=== PATIENT | female | born 1975 | race Caucasian/White ===

== ENCOUNTER 2018-08-05 03:57 | Inpatient (IN) ==
--- NOTE | 2018-08-05 04:07 | Emergency Department Note ---
ED Disposition Clinical Impression: Tachycardia Hypotension Qualifiers: Hypotension type: unspecified hypotension type Qualified Code(s): I95.9 - Hypotension, unspecified Disposition: Admitted as Observation Condition on Discharge: Fair - Critical Care Critical Care Time: Yes Attestation: On 08/05/18, the high probability of a clinically significant, sudden or life threatening deterioration of the following system(s) required my full and direct attention, intervention and personal management. The time I documented below is in addition to time spent performing reported procedures but includes the following listed in this critical care notation. Total Critical Care Time: 30 Vital system(s) involved:: Circulatory Failure My critical care processes included: Assessment & monitoring of V/S, Initial and Re-exams, Data Review/Interpretation, Coordinating Care, Medication Orders and management, Documentation Medical Decision Making - Billy Inquiry Pt receiving controlled substance: No Vital Signs: 08/05/18 03:59 08/05/18 05:00 08/05/18 05:24 Temperature 98.5 F Temperature Source Oral Pulse Rate [Right Radial] 122 H 124 H 118 H Respiratory Rate 24 16 16 Blood Pressure [Left Arm] 89/55 L 90/48 L 105/60 L Blood Pressure Mean [Left Arm] 66 62 75 Blood Pressure Source [Left Arm] Automatic Cuff Manual Cuff/ Auscultation Automatic Cuff Blood Pressure Position [Left Arm] Supine Supine Sitting 02 Sat by Pulse Oximetry 96 88 L 92 L Oxygen Delivery Method Aerosol Mask Nasal Cannula Nasal Cannula Oxygen Flow Rate (LPM) 3 2 2 08/05/18 05:36 Temperature Temperature Source Pulse Rate [Right Radial] 126 H Respiratory Rate 14 Blood Pressure [Left Arm] 102/62 L Blood Pressure Mean [Left Arm] 75 Blood Pressure Source [Left Arm] Automatic Cuff Blood Pressure Position [Left Arm] Supine 02 Sat by Pulse Oximetry 93 L Oxygen Delivery Method Nasal Cannula Oxygen Flow Rate (LPM) 2 - Lab Data Lab Results 08/05/18 04:10: WBC 13.8 H, RBC 4.81, Hgb 11.4 L, Hct 40.1, MCV 83.4, MCH 23.6 L , MCHC 28.3 L, RDW 19.0 H, Plt Count 225, MPV 7.4, Neut % (Auto) 69.4, Lymph % (Auto) 22.9, [place] % (Auto) 5.2, Eos % (Auto) 1.9, Baso % (Auto) 0.6, Neut # (Auto) 9.6 H, Lymph # (Auto) 3.2, [place] # (Auto) 0.7, Eos # (Auto) 0.3, Baso # (Auto) 0.1 08/05/18 04:10: D-Dimer 191 08/05/18 04:10: Sodium 132 L, Potassium 3.8, Chloride 92 L, Carbon Dioxide 30, Anion Gap 13.8, BUN 12, Creatinine 1.20 H, Estimated Creat Clear 56, Estimated GFR 50 L, Est GFR ( Amer) 60, Glucose 147 H, Calcium 8.7, Total Bilirubin 0.3, AST 4 L, ALT 12, Alkaline Phosphatase 81, Troponin I < 0.02, Total Protein 6.3 L, Albumin 3.0 L, Globulin 3.3 H, Albumin/Globulin Ratio 0.9 L 08/05/18 04:10: Lactate 2.2 H 08/05/18 04:10: B-Natriuretic Peptide 152 H Result diagrams: 08/05/18 04:10 08/05/18 04:10 Orders (Tests/Meds): ED MEDICATIONS Generic Name Dose Route Start Last Admin Trade Name Freq PRN Reason Stop Dose Admin Sodium Chloride 10 ml 08/05/18 04:11 Saline Flush 10ml Syringe IV 09/04/18 04:10 NEEDED PRN Maintain IV Site Discontinued Medications Generic Name Dose Route Start Last Admin Trade Name Freq PRN Reason Stop Dose Admin Methylprednisolone Sodium Succinate 125 mg 08/05/18 04:53 08/05/18 05:06 Solu-Medrol 125mg/2ml Vial IV 08/05/18 04:54 125 mg ONCE ONE Administration Sodium Chloride 1,000 ml 08/05/18 04:14 08/05/18 05:06 Sod Chlor 0.9% 1000ml Bag IV 08/05/18 04:15 1,000 ml BOLUS ONE Administration ORDERS Category Date Time Status XR chest portable Stat Exams 08/05/18 04:11 Taken Thyroid Panel Stat Lab 08/05/18 05:51 Ordered Urinalysis and Microscopic Stat Lab 08/05/18 05:24 Ordered Blood Culture Stat Micro 08/05/18 04:10 Received - Radiology Data #1 Image(s): Chest Image Reviewed: Yes I reviewed the patient's radiology image cardiomegaly - ECG Data Tracing #1 EKG interpreted by Humphrey Pulido MD: Rhythm: sinus tachycardia Rate: 123 [place]: normal Ectopy: none Conduction: Left posterior fascicular block ST Segment Changes: none T Wave Changes: none Q Waves: none Poor R wave progression Baseline artifact and wander present, but I consider the EKG adequate for accurate interpretation. No prior EKGs available for comparison - Physician Consults Physician Consulted: Bartolo Vance Time: 05:50 Reason -: Admission Comment/Response: Agrees to admit the patient to the hospital. We discussed the patient's clinical information, including history, exam, laboratory and radiology results and ED course. Per hospital procedure, I will write temporary bridge inpatient orders on the patient. Specific orders requested by the admitting physician: Continue IV fluids. Hold Lasix and lisinopril. Continue other medications. No antibiotics unless urine shows infection. Urine analysis pending at this time. Continue nebulizers and steroids. Medical Decision Narrative: Reviewed most recent visit to this emergency room. At that time had a white blood cell count of 13.7. Was also tachycardic with a heart rate of 115. Systolic blood pressure was 105. General Adult HPI - General Stated complaint: SOA Time Seen by Provider: 08/05/18 04:00 - History of Present Illness HPI narrative: Brought in by ambulance from [facility]. States that she went out to get a smoke tonight and suddenly began feeling short of breath, heart felt like it was beating out of her throat, lightheaded. Recent shortness of breath for several weeks, has turned her oxygen up from 2 L to 3 L. Pain in "my lungs in the back" for couple of weeks. Mild cough with white sputum. Denies fever. Low blood pressure and low oxygen saturation of 75% reported by personnel at [facility]. Duoneb given during transport. Seen in this emergency room on 07/14/18 for shortness of air, diagnosed with COPD exacerbation. Treated with Zithromax and prednisone. Patient is from [facility], has been here for about 3 months at [facility]. - Related Data Home Medications Medication Instructions Recorded Confirmed Acetaminophen [Tylenol 325mg 650 mg PO Q4-6H PRN 08/05/18 08/05/18 Tablet] Albuterol Sulfate [Albuterol 2.5 mg IH DAILY 08/05/18 08/05/18 0.083% 2.5mg/3mL neb] Albuterol Sulfate [Proair 90 mcg IH Q4-6H PRN 08/05/18 08/05/18 Respiclick] Aspirin [Aspir 81] 81 mg PO DAILY 08/05/18 08/05/18 Atorvastatin Calcium [Atorvastatin 10 mg PO HS 08/05/18 08/05/18 10mg Tab] Carvedilol [Carvedilol 3.125mg Tab] 3.125 mg PO BID 08/05/18 08/05/18 Fluticasone/Salmeterol [Advair 1 inhalation IH BID 08/05/18 08/05/18 100/50mcg diskus] Furosemide [Furosemide 40MG tAB] 40 mg PO PM 08/05/18 08/05/18 Furosemide [Furosemide 80mg Tab] 80 mg PO DAILY 08/05/18 08/05/18 Gabapentin [Gabapentin 400mg Cap] 800 mg PO TID 08/05/18 08/05/18 Haloperidol [Haldol 5mg tablet] 5 mg PO BID 08/05/18 08/05/18 Insulin Aspart [Novolog Flexpen] 15 unit SQ TID 08/05/18 08/05/18 Insulin Glargine,Hum.rec.anlog 28 unit SQ HS 08/05/18 08/05/18 [Basaglar Kwikpen U-100] Ipratropium/Albuterol Sulfate 3 ml IH DAILY PRN 08/05/18 08/05/18 [Iprat-Albut 0.5-3(2.5) mg/3 ml] LORazepam [Lorazepam 0.5mg Tablet] 0.5 mg PO TID 08/05/18 08/05/18 Lisinopril [Lisinopril 2.5mg Tab] 2.5 mg PO DAILY 08/05/18 08/05/18 Metformin HCl 1,000 mg PO BID 08/05/18 08/05/18 Topiramate 100 mg PO BID 08/05/18 08/05/18 buPROPion HCl [Bupropion Xl] 150 mg PO DAILY 08/05/18 08/05/18 risperiDONE [Risperidone] 8 mg PO HS 03/10/19 03/10/19 Allergies Allergy/AdvReac Type Severity Reaction Status Date / Time codeine Allergy Verified 08/05/18 04:13 minocycline Allergy Verified 08/05/18 04:13 [facility] History - Hepatitis A Screen Attestation statement:: This patient has been screened for Hepatitis A risk factors. I have reviewed the patient's past medical history: Yes Medical History: Reports:: Diabetes Mellitus Type 2 - Social History Smoking Status: Current every day smoker Tobacco Type: cigarettes # Packs/Day (cigarettes): 1 Alcohol Intake: never Occupational Status: other ROS Obtained: Yes All systems reviewed & no additional complaints - Constitutional Constitutional: Denies fever(s) - Cardiovascular Cardiovascular: Denies chest pain, Reports palpitations, Reports rapid heart rate - Respiratory Respiratory: Yes cough, Yes dyspnea, No excessive phlegm production, No coughing up blood - Gastrointestinal Gastrointestingal: Denies: abdominal pain, diarrhea, nausea, vomiting - Neurologic Neurologic: Denies headache(s) Physical Exam - General General appearance: alert, in no apparent distress - Head Head exam: atraumatic, normocephalic - Eye Eye exam: Present: normal appearance, PERRL, EOMI - ENT ENT exam: Present: mucous membranes moist - Neck Neck exam: Present: normal inspection, full ROM - Chest Chest inspection: Present: normal inspection, symmetric chest wall rise - Respiratory Respiratory exam: Present: normal lung sounds bilaterally. Absent: respiratory distress - Cardiovascular Cardiovascular exam: Present: normal rhythm, tachycardia, normal heart sounds - Abdominal Exam Abdominal exam: Present: soft. Absent: distention, tenderness, guarding - Extremities Exam Extremities exam: Present: full ROM, other (Trace pitting pretibial edema bilaterally) - Neurological Exam Neurological exam: Present: alert, oriented X3 - Psychiatric Psychiatric exam: Present: normal affect, normal mood - Skin Skin exam: Present: warm, dry
[2018-08-05 04:30] LABS: Basophils # 0.1 K/mm3 (0-0.2); Basophils % 0.6 % (0.1-2.0); Eosinophils # 0.3 K/mm3 (0.0-0.4); Eosinophils % 1.9 % (0.1-12.0); Hematocrit 40.1 % (37.0-47.0); Hemoglobin 11.4 g/dL (12.2-16.2); Lymphocytes # 3.2 K/mm3 (0.7-4.5); Lymphocytes % 22.9 % (10-50); Mean Corpuscular HGB Conc 28.3 g/dL (31.8-35.4); Mean Corpuscular Hemoglobin 23.6 pg (27.0-31.2); Mean Corpuscular Volume 83.4 fl (81-99); Mean Platelet Volume 7.4 fl (7.4-10.4); Monocytes # 0.7 K/mm3 (0.1-1.0); Monocytes % 5.2 % (1.7-9.3); Neutrophils # 9.6 K/mm3 (1.8-7.8); Neutrophils % 69.4 % (37.0-80.0); Platelet Count 225 K/mm3 (142-424); Red Blood Count 4.81 M/mm3 (4.20-5.40); White Blood Count 13.8 K/mm3 (4.8-10.8)
[2018-08-05 04:44] LABS: Alanine Aminotransferase 12 U/L (12-78); Albumin/Globulin Ratio 0.9 (1.1-1.8); Alkaline Phosphatase 81 U/L (46-116); Anion Gap 13.8 mEq/L (5-15); Aspartate Amino Transferase 4 U/L (15-37); Bilirubin,Total 0.3 mg/dL (0.2-1.0); Blood Urea Nitrogen 12 mg/dL (7-18); Calcium 8.7 mg/dL (8.5-10.1); Carbon Dioxide 30 mmol/L (21.0-32.0); Chloride 92 mmol/L (98-107); Globulin 3.3 gm/dl (1.3-3.2); Glucose 147 mg/dL (74-106); Potassium 3.8 mmoL/L (3.5-5.1); Sodium 132 mmol/L (136-145); Total Protein,Serum 6.3 gm/dL (6.4-8.2)
[2018-08-05 06:01] LABS: Appearance,Urine SL CLOUDY (Clear); Blood, Urine Negative (Negative); Color,Urine YELLOW (Yellow); Glucose,Urine (UA) Negative (Negative); Ketones,Urine TRACE (Negative); Leukocyte Esterase,Urine Negative (Negative); Microscopic, Urine URINE MICROSCOPIC (MICROSCOPIC); Protein,Urine Negative (Negative); Urobilinogen,Urine 0.2 EU/dl (0.2)
[2018-08-05 06:03] LABS: Bacteria,Urine 2+ /lpf; Bilirubin,Urine Negative (Negative)
[2018-08-05 06:04] LABS: WBC,Urine Occasional #/hpf (0-3)
[2018-08-05 06:37] LABS: Free Thyroxine Index 2.4 ug/dL (5.93-13.13); Thyroid Stimulating Hormone 1.62 uIU/ml (0.358-3.740)
--- NOTE | 2018-08-05 14:34 | Pharmacy Consult Notes ---
[facility] Pharmacy VTE Monitoring - Patient Demographics Admission date: 08/05/18 Report Date: 08/05/18 Time: 14:34 Allergies/Adverse Reactions: Patient Allergies codeine Allergy (Verified 08/05/18 04:13) minocycline Allergy (Verified 08/05/18 04:13) Height: 1.65 m Weight: 124.738 kg Patient Problems: Current Active Problems Hypotension (Acute) Tachycardia (Acute) - VTE Risk Labs: VTE Related Lab Results Hgb 11.4 g/dL (12.2-16.2) L 08/05/18 04:10 Hct 40.1 % (37.0-47.0) 08/05/18 04:10 Plt Count 225 K/mm3 (142-424) 08/05/18 04:10 BUN 12 mg/dL (7-18) 08/05/18 04:10 Creatinine 1.20 mg/dL (0.55-1.02) H 08/05/18 04:10 Estimated Creat Clear 56 mL/min (50-200) 08/05/18 04:10 Was VTE Risk Assessment Performed: Yes VTE Score: 5 VTE Risk Level: Low Risk - Prophylaxis Types of VTE Prophylaxis: TEDS Knee High (DASHA HOSE ORDER PLACED.)
--- NOTE | 2018-08-05 14:43 | History & Physical Report ---
*Admission Date: 08/05/18 *Chief complaint: sob *History of present illness: this wf from [facility] with feeling dizzy and sob and felt like she may pass out -she reports havint copd and uses o2 at times - pt with no chest pain or syncope -ought in by ambulance from [facility]. States that she went out to get a smoke tonight and suddenly began feeling short of breath, heart felt like it was beating out of her throat, lightheaded. Recent shortness of breath for several weeks, has turned her oxygen up from 2 L to 3 L. Pain in "my lungs in the back" for couple of weeks. Mild cough with white sputum. Denies fever. Low blood pressure and low oxygen saturation of 75% reported by personnel at [facility]. Duoneb given during transport. Seen in this emergency room on 07/14/18 for shortness of air, diagnosed with COPD exacerbation. Treated with Zithromax and prednisone. [facility] History I have reviewed the patient's past medical history: Yes Medical History: Reports:: Arrhythmia, Congestive Heart Failure, Diabetes Mellitus Type 2, Home Oxygen Denies:: Cancer, Diabetes Mellitus Type 1, MRSA *Have you ever received a pneumonia vaccine?: Yes *Have you received a flu vaccine this season?: No Other Surgeries: Yes: Appendectomy, Cholecystectomy, Amputation: No Fractures: No - *Social History Educational Level: Attended College Smoking Status: Current every day smoker Tobacco Type: cigarettes, cigars # Packs/Day (cigarettes): 1 Alcohol Intake: former Substance Use Type: marijuana, painkillers *Occupational Status:: disabled Housing: assisted living facility Household Members: other *Travel in the last 8 weeks: None - Psychiatric History Expresses thoughts of harming self/others: None Suicide Plan Description: No Plan Family Hx:: Anemia, Asthma, Coronary Artery Disease, Diabetes, Heart Attack, Hyperlipidemia, Hypertension Review of Systems - Review of Systems Review of systems:: pertinent systems reviewed and negative unless documented below - Constitutional Reports weakness, Denies headache(s) - Eyes Denies change in vision - ENT Denies change in voice - *Cardiovascular Reports shortness of breath, Denies chest pain - *Respiratory Denies cough - *Gastrointestinal Denies abdominal pain - *Genitourinary Denies painful urination - *Musculoskeletal Denies joint pain - Integumentary/Breasts Denies rash - *Neurologic Denies headache(s), Denies seizure-like activity - Psychiatric Denies anxiety Meds Home Medications Medication Instructions Recorded Confirmed Type Acetaminophen [Tylenol 325mg 650 mg PO Q4-6H PRN 08/05/18 08/05/18 History Tablet] Albuterol Sulfate [Albuterol 2.5 mg IH DAILY 08/05/18 08/05/18 History 0.083% 2.5mg/3mL neb] Albuterol Sulfate [Proair 90 mcg IH Q4-6H PRN 08/05/18 08/05/18 History Respiclick] Aspirin [Aspir 81] 81 mg PO DAILY 08/05/18 08/05/18 History Atorvastatin Calcium [Atorvastatin 10 mg PO HS 08/05/18 08/05/18 History 10mg Tab] Carvedilol [Carvedilol 3.125mg Tab] 3.125 mg PO BID 08/05/18 08/05/18 History Fluticasone/Salmeterol [Advair 1 inhalation IH BID 08/05/18 08/05/18 History 100/50mcg diskus] Furosemide [Furosemide 40MG tAB] 40 mg PO PM 08/05/18 08/05/18 History Furosemide [Furosemide 80mg Tab] 80 mg PO DAILY 08/05/18 08/05/18 History Gabapentin [Gabapentin 400mg Cap] 800 mg PO TID 08/05/18 08/05/18 History Haloperidol [Haldol 5mg tablet] 5 mg PO BID 08/05/18 08/05/18 History Insulin Aspart [Novolog Flexpen] 15 unit SQ TID 08/05/18 08/05/18 History Insulin Glargine,Hum.rec.anlog 28 unit SQ HS 08/05/18 08/05/18 History [Basaglar Kwikpen U-100] Ipratropium/Albuterol Sulfate 3 ml IH DAILY PRN 08/05/18 08/05/18 History [Iprat-Albut 0.5-3(2.5) mg/3 ml] LORazepam [Lorazepam 0.5mg Tablet] 0.5 mg PO TID 08/05/18 08/05/18 History Lisinopril [Lisinopril 2.5mg Tab] 2.5 mg PO DAILY 08/05/18 08/05/18 History Metformin HCl 1,000 mg PO BID 08/05/18 08/05/18 History Sitagliptin Phosphate [Januvia 100 mg PO DAILY 08/05/18 08/05/18 History 100mg tablet] Topiramate 100 mg PO BID 08/05/18 08/05/18 History buPROPion HCl [Bupropion Xl] 150 mg PO DAILY 08/05/18 08/05/18 History risperiDONE [Risperidone] 8 mg PO HS 08/05/18 08/05/18 History Allergies Allergy/AdvReac Type Severity Reaction Status Date / Time codeine Allergy Verified 08/05/18 04:13 minocycline Allergy Verified 08/05/18 04:13 Exam Vital signs and Labs for Last 24 Hours: Temp Pulse Resp BP Pulse Ox 98.5 F 124 H 20 114/60 94 L 08/05/18 11:37 08/05/18 14:40 08/05/18 11:37 08/05/18 11:37 08/05/18 11:37 Laboratory Results - last 24 hr 08/05/18 04:10: WBC 13.8 H, RBC 4.81, Hgb 11.4 L, Hct 40.1, MCV 83.4, MCH 23.6 L , MCHC 28.3 L, RDW 19.0 H, Plt Count 225, MPV 7.4, Neut % (Auto) 69.4, Lymph % (Auto) 22.9, [place] % (Auto) 5.2, Eos % (Auto) 1.9, Baso % (Auto) 0.6, Neut # (Auto) 9.6 H, Lymph # (Auto) 3.2, [place] # (Auto) 0.7, Eos # (Auto) 0.3, Baso # (Auto) 0.1 08/05/18 04:10: D-Dimer 191 08/05/18 04:10: Sodium 132 L, Potassium 3.8, Chloride 92 L, Carbon Dioxide 30, Anion Gap 13.8, BUN 12, Creatinine 1.20 H, Estimated Creat Clear 56, Estimated GFR 50 L, Est GFR ( Amer) 60, Glucose 147 H, Calcium 8.7, Total Bilirubin 0.3, AST 4 L, ALT 12, Alkaline Phosphatase 81, Troponin I < 0.02, Total Protein 6.3 L, Albumin 3.0 L, Globulin 3.3 H, Albumin/Globulin Ratio 0.9 L 08/05/18 04:10: Lactate 2.2 H 08/05/18 04:10: B-Natriuretic Peptide 152 H 08/05/18 04:10: TSH 1.62, Free T4 Index 2.4 L, Thyroxine (T4) 6.4, T3 Uptake 37 08/05/18 05:24: Urine Color Yellow, Urine Appearance Sl cloudy, Urine pH 6.0, Ur Specific [place] 1.020, Urine Protein Negative, Urine Glucose (UA) Negative, Urine Ketones Trace, Urine Blood Negative, Urine Nitrate Negative, Urine Bilirubin Negative, Urine Urobilinogen 0.2, Ur Leukocyte Esterase Negative, Urine WBC Occasional, Ur Squamous Epith Cells 3-5, Urine Bacteria 2+ 08/05/18 06:50: POC Glucose 145 H 08/05/18 08:45: Troponin I < 0.02 08/05/18 08:45: Lactate 1.7 08/05/18 10:52: POC Glucose 259 H 08/05/18 12:23: Troponin I < 0.02 I & O for Last 24 hours: Intake & Output 08/03/18 08/04/18 08/05/18 08/06/18 10:59 10:59 11:59 11:59 Intake Total 240 / 240 Output Total 350 / 350 Balance -110 / -110 Weight 275 lb - Constitutional no acute distress, obese - *Routine HEENT Exam Head: Present: normocephalic Eye: Present: EOMI, PERRL ENT: Present: mucous membranes dry - *Routine Neck Exam Absent: JVD - *Routine Respiratory Exam Present: prolonged expiratory phase, wheezes. Absent: respiratory distress - *Routine Cardiovascular Exam Present: RRR, murmur, S4 - *Routine Abdominal Exam Present: soft - *Routine Extremities Exam Absent: calf tenderness - *Routine Skin Exam Present: intact - *Routine Neurological Exam Present: alert, oriented X3, CN II-XII intact - Routine Psychiatric Exam Present: normal affect Assessment and Plan (1) COPD (chronic obstructive pulmonary disease) Current visit: No Status: Acute Qualifiers: COPD type: COPD with acute exacerbation Qualified Code(s): J44.1 - Chronic obstructive pulmonary disease with (acute) exacerbation Category: Medical Code(s): J44.9 - Chronic obstructive pulmonary disease, unspecified (2) Dizziness Current visit: Yes Status: Acute Category: Medical Code(s): R42 - Dizziness and giddiness (3) Obesity Current visit: Yes Status: Acute Qualifiers: Obesity type: due to excess calories Obesity classification: adult class 3 (BMI >= 40) Serious obesity comorbidity presence: with serious comorbidity Body mass index: BMI 45.0-49.9 Qualified Code(s): E66.01 - Morbid (severe) obesity due to excess calories; Z68.42 - Body mass index (BMI) 45.0-49.9, adult Category: Medical Code(s): E66.9 - Obesity, unspecified (4) Diabetes Current visit: Yes Status: Acute Qualifiers: Diabetes mellitus type: type 1 Diabetes mellitus complication status: with unspecified complications Qualified Code(s): E10.8 - Type 1 diabetes mellitus with unspecified complications Category: Medical Code(s): E11.9 - Type 2 diabetes mellitus without complications (5) Schizophrenia Current visit: Yes Status: Acute Qualifiers: Schizophrenia type: undifferentiated schizophrenia Qualified Code(s): F20.3 - Undifferentiated schizophrenia Category: Medical Code(s): F20.9 - Schizophrenia, unspecified
[2018-08-06 05:52] LABS: ABG Base Excess 7.4 mmol/L (-2.4-2.3); ABG HCO3 33.1 mmhg (22.0-26.0); ABG Oxygen Saturation 90 % (90-100); ABG PH 7.34 mmol/L (7.35-7.45)
[2018-08-06 05:56] LABS: ABG PCO2 62.3 mmhg (35.0-45.0); Allen's Test Acceptable; Oxygen 2 %
[2018-08-06 06:46] LABS: Basophils % 0.1 % (0.1-2.0); Eosinophils % 0.2 % (0.1-12.0); Hematocrit 42.1 % (37.0-47.0); Hemoglobin 11.9 g/dL (12.2-16.2); Lymphocytes # 1.3 K/mm3 (0.7-4.5); Lymphocytes % 9.5 % (10-50); Mean Corpuscular HGB Conc 28.3 g/dL (31.8-35.4); Mean Corpuscular Hemoglobin 23.7 pg (27.0-31.2); Mean Corpuscular Volume 83.7 fl (81-99); Mean Platelet Volume 8.3 fl (7.4-10.4); Monocytes # 0.7 K/mm3 (0.1-1.0); Monocytes % 4.9 % (1.7-9.3); Neutrophils # 11.6 K/mm3 (1.8-7.8); Neutrophils % 85.3 % (37.0-80.0); Platelet Count 233 K/mm3 (142-424); Red Blood Count 5.02 M/mm3 (4.20-5.40); Red Cell Distribution Width 18.6 % (11.5-17.5); White Blood Count 13.5 K/mm3 (4.8-10.8)
[2018-08-06 06:49] LABS: Anion Gap 9.8 mEq/L (5-15); Potassium 4.8 mmoL/L (3.5-5.1)
[2018-08-06 07:04] LABS: Calcium 9.6 mg/dL (8.5-10.1)
[2018-08-06 07:50] LABS: Lymphocytes % 10 % (10-50); Monocytes % 3 % (2-9); Neutrophils % 87 % (42-76); Total Cells Counted 100
[2018-08-06 07:51] LABS: Hypochromasia 2+
--- NOTE | 2018-08-06 08:53 | Progress Note ---
Internal Medicine - PN: Subj *Date: 08/06/18 *Time: 08:30 Interval history: somulent but no c/o Exam Vital signs and Labs for Last 24 Hours: Temp Pulse Resp BP Pulse Ox 97.9 F 120 H 20 110/62 91 L 08/06/18 08:00 08/06/18 08:00 08/06/18 08:00 08/06/18 08:00 08/06/18 08:00 Laboratory Results - last 24 hr 08/05/18 08:45: Troponin I < 0.02 08/05/18 08:45: Lactate 1.7 08/05/18 10:52: POC Glucose 259 H 08/05/18 12:23: Troponin I < 0.02 08/05/18 16:33: POC Glucose 249 H 08/05/18 21:25: POC Glucose 211 H 08/06/18 06:00: Specimen Source Left radial, O2 % 2, ABG pH 7.34 L, ABG pCO2 62.3 H, ABG pO2 59.0 L, ABG HCO3 33.1 H, ABG Total CO2 35.0 H, ABG O2 Saturation 90, ABG Base Excess 7.4 H, Yan Test Acceptable 08/06/18 06:03: POC Glucose 194 H 08/06/18 06:08: WBC 13.5 H, RBC 5.02, Hgb 11.9 L, Hct 42.1, MCV 83.7, MCH 23.7 L , MCHC 28.3 L, RDW 18.6 H, Plt Count 233, MPV 8.3, Neut % (Auto) 85.3 H, Lymph % (Auto) 9.5 L, [place] % (Auto) 4.9, Eos % (Auto) 0.2, Baso % (Auto) 0.1, Neut # (Auto) 11.6 H, Lymph # (Auto) 1.3, [place] # (Auto) 0.7, Eos # (Auto) 0.0, Baso # (Auto) 0.0, Total Counted 100, Neutrophils % (Manual) 87 H, Lymphocytes % (Manual) 10, Monocytes % (Manual) 3, Platelet Estimate Normal, Hypochromasia 2+ 08/06/18 06:08: Sodium 136, Potassium 4.8 D, Chloride 99, Carbon Dioxide 32, Anion Gap 9.8, BUN 15, Creatinine 0.75 D, Estimated Creat Clear 90, Estimated GFR 86, Est GFR ( Amer) 104 D, Glucose 196 H, Calcium 9.6 D I & O for Last 24 hours: Intake & Output 08/03/18 08/04/18 08/05/18 08/06/18 10:59 10:59 11:59 11:59 Intake Total 1727 / 1727 Output Total 650 / 650 Balance 1077 / 1077 Weight 275 lb 0.003 oz Microbiology Reports for the Last 24 Hours: Microbiology 08/05/18 05:24 Urine,Clean Catch Urine Culture - Final Multiple organisms, suggests contamination. - Constitutional no acute distress, obese, somnolent - *Routine HEENT Exam Head: Present: normocephalic Eye: Present: EOMI, PERRL ENT: Present: mucous membranes dry - *Routine Neck Exam Present: supple - *Routine Respiratory Exam Present: decreased breath sounds - *Routine Cardiovascular Exam Present: tachycardia - *Routine Abdominal Exam Present: soft - *Routine Extremities Exam Absent: calf tenderness - *Routine Skin Exam Present: intact - *Routine Neurological Exam Present: alert, oriented X3, CN II-XII intact - Routine Psychiatric Exam Present: unable to assess Assessment and Plan (1) COPD (chronic obstructive pulmonary disease) Current visit: No Status: Acute Qualifiers: COPD type: COPD with acute exacerbation Qualified Code(s): J44.1 - Chronic obstructive pulmonary disease with (acute) exacerbation Category: Medical Code(s): J44.9 - Chronic obstructive pulmonary disease, unspecified (2) Dizziness Current visit: Yes Status: Acute Category: Medical Code(s): R42 - Dizziness and giddiness (3) Obesity Current visit: Yes Status: Acute Qualifiers: Obesity type: due to excess calories Obesity classification: adult class 3 (BMI >= 40) Serious obesity comorbidity presence: with serious comorbidity Body mass index: BMI 45.0-49.9 Qualified Code(s): E66.01 - Morbid (severe) obesity due to excess calories; Z68.42 - Body mass index (BMI) 45.0-49.9, adult Category: Medical Code(s): E66.9 - Obesity, unspecified (4) Diabetes Current visit: Yes Status: Acute Qualifiers: Diabetes mellitus type: type 1 Diabetes mellitus complication status: with unspecified complications Qualified Code(s): E10.8 - Type 1 diabetes mellitus with unspecified complications Category: Medical Code(s): E11.9 - Type 2 diabetes mellitus without complications (5) Schizophrenia Current visit: Yes Status: Acute Qualifiers: Schizophrenia type: undifferentiated schizophrenia Qualified Code(s): F20.3 - Undifferentiated schizophrenia Category: Medical Code(s): F20.9 - Schizophrenia, unspecified (6) Tobacco use Current visit: Yes Status: Acute Category: Medical Code(s): Z72.0 - Tobacco use
--- NOTE | 2018-08-06 09:02 | Consult Report ---
History of Present Illness Consult date: 08/06/18 Requesting physician: Torrse Vance Consult reason: hypotension Chief complaint: SOA Additional Medical History:: 1. History of diabetes 2. Tobacco use 3. Obesity 4. Schizophrenia 5. Hypoventilation disorder secondary to obesity (Pickwickian Syndrome) A. COPD with PRN oxygen use History of present illness: this wf from [place] with feeling dizzy and sob and felt like she may pass out -she reports having copd and uses o2 at times - pt with no chest pain or syncope -brought in by ambulance from [facility]. States that she went out to get a smoke tonight and suddenly began feeling short of breath, heart felt like it was beating out of her throat, lightheaded. Recent shortness of breath for several weeks, has turned her oxygen up from 2 L to 3 L. Pain in "my lungs in the back" for couple of weeks. Mild cough with white sputum. Denies fever. Low blood pressure and low oxygen saturation of 75% reported by personnel at [facility] Duoneb given during transport. Seen in this emergency room on 07/14/18 for shortness of air, diagnosed with COPD exacerbation. Treated with Zithromax and prednisone. The above per Dr. Vance Difficult historian. Falls asleep easily. ABG on 2 LPM oxygen this AM shows pH of 7.34, pCO2 of 62.3 and pO2 of 59. Attempt of BiPAP is being started. EKG on 08-05-18 shows sinus tach at 123 bpm with LPFB and PRWP across the precordium. [facility] History Medical History: Reports:: Arrhythmia, Congestive Heart Failure, Diabetes Mellitus Type 2, Home Oxygen Denies:: Cancer, Diabetes Mellitus Type 1, MRSA *Have you ever received a pneumonia vaccine?: Yes *Have you received a flu vaccine this season?: No Other Surgeries: Yes: Appendectomy, Cholecystectomy, Amputation: No Fractures: No - *Social History Educational Level: Attended College Smoking Status: Current every day smoker Tobacco Type: cigarettes, cigars # Packs/Day (cigarettes): 1 Alcohol Intake: former Substance Use Type: marijuana, painkillers *Occupational Status:: disabled Housing: assisted living facility Household Members: other *Travel in the last 8 weeks: None - Psychiatric History Expresses thoughts of harming self/others: None Suicide Plan Description: No Plan Family Hx:: Anemia, Asthma, Coronary Artery Disease, Diabetes, Heart Attack, Hyperlipidemia, Hypertension Meds Home Medications Medication Instructions Recorded Confirmed Type Acetaminophen [Tylenol 325mg 650 mg PO Q4-6H PRN 08/05/18 08/05/18 History Tablet] Albuterol Sulfate [Albuterol 2.5 mg IH DAILY 08/05/18 08/05/18 History 0.083% 2.5mg/3mL neb] Albuterol Sulfate [Proair 90 mcg IH Q4-6H PRN 08/05/18 08/05/18 History Respiclick] Aspirin [Aspir 81] 81 mg PO DAILY 08/05/18 08/05/18 History Atorvastatin Calcium [Atorvastatin 10 mg PO HS 08/05/18 08/05/18 History 10mg Tab] Carvedilol [Carvedilol 3.125mg Tab] 3.125 mg PO BID 08/05/18 08/05/18 History Fluticasone/Salmeterol [Advair 1 inhalation IH BID 08/05/18 08/05/18 History 100/50mcg diskus] Furosemide [Furosemide 40MG tAB] 40 mg PO PM 08/05/18 08/05/18 History Furosemide [Furosemide 80mg Tab] 80 mg PO DAILY 08/05/18 08/05/18 History Gabapentin [Gabapentin 400mg Cap] 800 mg PO TID 08/05/18 08/05/18 History Haloperidol [Haldol 5mg tablet] 5 mg PO BID 08/05/18 08/05/18 History Insulin Aspart [Novolog Flexpen] 15 unit SQ TID 08/05/18 08/05/18 History Insulin Glargine,Hum.rec.anlog 28 unit SQ HS 08/05/18 08/05/18 History [Basaglar Kwikpen U-100] Ipratropium/Albuterol Sulfate 3 ml IH DAILY PRN 08/05/18 08/05/18 History [Iprat-Albut 0.5-3(2.5) mg/3 ml] LORazepam [Lorazepam 0.5mg Tablet] 0.5 mg PO TID 08/05/18 08/05/18 History Lisinopril [Lisinopril 2.5mg Tab] 2.5 mg PO DAILY 08/05/18 08/05/18 History Metformin HCl 1,000 mg PO BID 08/05/18 08/05/18 History Sitagliptin Phosphate [Januvia 100 mg PO DAILY 08/05/18 08/05/18 History 100mg tablet] Topiramate 100 mg PO BID 08/05/18 08/05/18 History buPROPion HCl [Bupropion Xl] 150 mg PO DAILY 08/05/18 08/05/18 History risperiDONE [Risperidone] 8 mg PO HS 08/05/18 08/05/18 History Allergies Allergy/AdvReac Type Severity Reaction Status Date / Time codeine Allergy Verified 08/05/18 04:13 minocycline Allergy Verified 08/05/18 04:13 Review of Systems - *Cardiovascular Reports shortness of breath, Reports rapid, pounding, or irregular heartbeat, Denies chest pain - *Respiratory Reports cough, Reports shortness of breath, Reports shortness of breath with activity - *Gastrointestinal Denies abdominal pain, Denies loose stools - *Genitourinary Denies blood in urine - *Musculoskeletal Denies joint pain, Denies back pain - *Neurologic Reports weakness, Denies headache(s), Denies seizure-like activity Exam Vital signs and Labs for Last 24 Hours: Temp Pulse Resp BP Pulse Ox 97.9 F 120 H 20 110/62 91 L 08/06/18 08:00 08/06/18 08:00 08/06/18 08:00 08/06/18 08:00 08/06/18 08:00 Laboratory Results - last 24 hr 08/05/18 08:45: Troponin I < 0.02 08/05/18 08:45: Lactate 1.7 08/05/18 10:52: POC Glucose 259 H 08/05/18 12:23: Troponin I < 0.02 08/05/18 16:33: POC Glucose 249 H 08/05/18 21:25: POC Glucose 211 H 08/06/18 06:00: Specimen Source Left radial, O2 % 2, ABG pH 7.34 L, ABG pCO2 62.3 H, ABG pO2 59.0 L, ABG HCO3 33.1 H, ABG Total CO2 35.0 H, ABG O2 Saturation 90, ABG Base Excess 7.4 H, Yan Test Acceptable 08/06/18 06:03: POC Glucose 194 H 08/06/18 06:08: WBC 13.5 H, RBC 5.02, Hgb 11.9 L, Hct 42.1, MCV 83.7, MCH 23.7 L , MCHC 28.3 L, RDW 18.6 H, Plt Count 233, MPV 8.3, Neut % (Auto) 85.3 H, Lymph % (Auto) 9.5 L, [place] % (Auto) 4.9, Eos % (Auto) 0.2, Baso % (Auto) 0.1, Neut # (Auto) 11.6 H, Lymph # (Auto) 1.3, [place] # (Auto) 0.7, Eos # (Auto) 0.0, Baso # (Auto) 0.0, Total Counted 100, Neutrophils % (Manual) 87 H, Lymphocytes % (Manual) 10, Monocytes % (Manual) 3, Platelet Estimate Normal, Hypochromasia 2+ 08/06/18 06:08: Sodium 136, Potassium 4.8 D, Chloride 99, Carbon Dioxide 32, Anion Gap 9.8, BUN 15, Creatinine 0.75 D, Estimated Creat Clear 90, Estimated GFR 86, Est GFR ( Amer) 104 D, Glucose 196 H, Calcium 9.6 D I & O for Last 24 hours: Intake & Output 08/03/18 08/04/18 08/05/18 08/06/18 10:59 10:59 11:59 11:59 Intake Total 1727 / 1727 Output Total 650 / 650 Balance 1077 / 1077 Weight 275 lb 0.003 oz Microbiology Reports for the Last 24 Hours: Microbiology 08/05/18 05:24 Urine,Clean Catch Urine Culture - Final Multiple organisms, suggests contamination. - *Routine Respiratory Exam Present: decreased breath sounds. Absent: accessory muscle use, rales, rhonchi, wheezes - *Routine Cardiovascular Exam Present: tachycardia. Absent: murmur, gallop, rubs - *Routine Abdominal Exam Present: soft. Absent: tenderness, distended, guarding - *Routine Extremities Exam Absent: edema, calf tenderness - *Routine Neurological Exam Present: moving all extremities Assessment and Plan (1) COPD (chronic obstructive pulmonary disease) Current visit: No Status: Acute Qualifiers: COPD type: COPD with acute exacerbation Qualified Code(s): J44.1 - Chronic obstructive pulmonary disease with (acute) exacerbation Category: Medical Code(s): J44.9 - Chronic obstructive pulmonary disease, unspecified (2) Dizziness Current visit: Yes Status: Acute Category: Medical Code(s): R42 - Dizziness and giddiness (3) Obesity Current visit: Yes Status: Acute Qualifiers: Obesity type: due to excess calories Obesity classification: adult class 3 (BMI >= 40) Serious obesity comorbidity presence: with serious comorbidity Body mass index: BMI 45.0-49.9 Qualified Code(s): E66.01 - Morbid (severe) obesity due to excess calories; Z68.42 - Body mass index (BMI) 45.0-49.9, adult Category: Medical Code(s): E66.9 - Obesity, unspecified (4) Diabetes Current visit: Yes Status: Acute Qualifiers: Diabetes mellitus type: type 1 Diabetes mellitus complication status: with unspecified complications Qualified Code(s): E10.8 - Type 1 diabetes mellitus with unspecified complications Category: Medical Code(s): E11.9 - Type 2 diabetes mellitus without complications (5) Schizophrenia Current visit: Yes Status: Acute Qualifiers: Schizophrenia type: undifferentiated schizophrenia Qualified Code(s): F20.3 - Undifferentiated schizophrenia Category: Medical Code(s): F20.9 - Schizophrenia, unspecified (6) Tobacco use Current visit: Yes Status: Acute Category: Medical Code(s): Z72.0 - Tobacco use - Assessment and plan all Dx Assessment and Plan for all problems:: 1. Tachycardia, secondary to pulmonary issues. Recommend switching coreg to bisoprolol for better heart rate control with less BP effect. 2. Preliminary echo shows normal LVEF without significant valve disease. 3. Once respiratory status has improved, patient should have a cardiac workup due to her diabetes. Doubt patient would be able to exercise due to obesity or tolerate lexiscan due to severe pulmonary issues. Likely will need to have cardiac cath which can wait since no evidence of ACS at this time.
--- NOTE | 2018-08-06 19:47 | Cardiology Report ---
PROCEDURE: 2-D M-mode and color Doppler study INDICATIONS FOR THE TEST: Chest pain COPD+ Heart Murmur Tobacco Smoking+ Palpitations Fatigue Syncope Edema Hypertension Diabetes Mellitus+ Rheumatic Fever SOB+RODRIGUEZ Obesity Hyperlipidemia Family History HD Additional History DIZZINESS, HOME 02, CHF, BIPOLAR, SCHIZO PATIENT INFORMATION HEIGHT: 67 WEIGHT:275 GENDER: Female B/P:114/60 2-D/M-MODE INTERPRETATION: 2-D MEASUREMENTS OBSERVED VALUES IN CMS Right Ventricular Dimension (RVDd) 3.5 Interventricular Septum (Thickness)(IVsd) 1.3 Left Ventricular Internal Dimensions(LVIDd) 3.4 Left Ventricular Posterior Wall (Thickness)(LVPWd) 1.3 Aortic Root 3.2 Aortic Cusp Separation 2.2 Left Atrial Dimensions (LAD) 3.2 2D 1. Left atrium is moderately enlarged, left ventricle is normal size, mild concentric left ventricular hypertrophy, visually estimated ejection fraction 55% with no regional wall motion abnormality. 2. The right atrium and right ventricle are moderately enlarged with normal contractility. 3. The aortic valve is minimally thickened and fibrosed. 4. The mitral and tricuspid valve leaflets are minimally thickened 5. The pulmonic valve is poorly present. 6. No significant pericardial effusion noted. DOPPLER INTERROGATION: Doppler interrogation of the aortic, mitral and tricuspid valvular presence of mild mitral and tricuspid regurgitation, calculated right ventricular systolic pressure is 55 mmHg consistent with moderate pulmonary hypertension, diastolic parameters are inconclusive. CONCLUSION: 1. Moderate biatrial enlargement, normal left ventricular size, mild concentric left ventricular hypertrophy, visually estimated ejection fraction 55% with no regional wall motion abnormality, diastolic parameters are inconclusive. 2. Moderately enlarged right ventricle with normal contractility. 3. Mild mitral and tricuspid regurgitation, calculated right ventricular systolic pressure is 55 mmHg consistent with moderate pulmonary hypertension. 4. No significant pericardial effusion noted.
--- NOTE | 2018-08-07 11:31 | Progress Note ---
Subjective Date: 08/07/18 Time: 11:28 Principal diagnosis: Tachycardia, COPD exacerbation Interval history: 42 yo WF in bed in NAD. More alert today. States she feels better and is breathing better. Telemetry shows NSR without significant arrhythmias. Echo shows LVEF of 55% with RVSP of 55 mm Hg. Discussed smoking cessation Exam Vital signs and Labs for Last 24 Hours: Temp Pulse Resp BP Pulse Ox 98.0 F 88 18 142/87 H 96 08/07/18 08:00 08/07/18 08:00 08/07/18 08:00 08/07/18 08:00 08/07/18 08:00 Laboratory Results - last 24 hr 08/06/18 11:37: POC Glucose 210 H 08/06/18 16:28: POC Glucose 241 H 08/06/18 21:33: POC Glucose 234 H 08/07/18 06:27: POC Glucose 205 H I & O for Last 24 hours: Intake & Output 08/04/18 08/05/18 08/06/18 08/07/18 10:59 11:59 11:59 11:59 Intake Total 1727 / 1727 1856 / 1856 Output Total 650 / 650 1200 / 1200 Balance 1077 / 1077 656 / 656 Weight 275 lb 0.003 oz 275 lb 0.003 oz Microbiology Reports for the Last 24 Hours: Microbiology 08/05/18 04:10 Blood Blood Culture - Preliminary NO GROWTH AFTER 48 HOURS 08/05/18 04:10 Blood Blood Culture - Preliminary NO GROWTH AFTER 48 HOURS - *Routine Respiratory Exam Present: CTA bilaterally. Absent: accessory muscle use, rales, rhonchi, wheezes - *Routine Cardiovascular Exam Present: RRR. Absent: murmur, gallop, rubs - *Routine Extremities Exam Absent: edema, calf tenderness - *Routine Neurological Exam Present: alert, oriented X3, moving all extremities Progress Note: A&P (1) COPD (chronic obstructive pulmonary disease) Status: Acute Current Visit: No (2) Dizziness Status: Acute Current Visit: Yes (3) Obesity Status: Acute Current Visit: Yes (4) Diabetes Status: Acute Current Visit: Yes (5) Schizophrenia Status: Acute Current Visit: Yes (6) Tobacco use Status: Acute Current Visit: Yes (7) Tachycardia Status: Resolved Current Visit: Yes Assessment and Plan for All Diagnoses:: Cardiac status has improved on bisoprolol and improvement of respiratory status (using combo of BiPAP and supplemental oxygen). Encouraged smoking cessation. Continue ASA 81 mg daily lipitor 10 mg daily bisoprolol 5 mg daily Follow up in 2-3 wks OK for discharge from Cardiology standpoint.
--- NOTE | 2018-08-07 12:43 | Discharge Summary ---
General - General Admission date:: 08/05/18 Discharge date: 08/07/18 HPI HPI: this wf from [facility] with feeling dizzy and sob and felt like she may pass out -she reports havint copd and uses o2 at times - pt with no chest pain or syncope -ought in by ambulance from [facility]. States that she went out to get a smoke tonight and suddenly began feeling short of breath, heart felt like it was beating out of her throat, lightheaded. Recent shortness of breath for several weeks, has turned her oxygen up from 2 L to 3 L. Pain in "my lungs in the back" for couple of weeks. Mild cough with white sputum. Denies fever. Low blood pressure and low oxygen saturation of 75% reported by personnel at [facility]. Duoneb given during transport. Seen in this emergency room on 07/14/18 for shortness of air, diagnosed with COPD exacerbation. Treated with Zithromax and prednisone. Hospital Course Hospital Course: pt did well in the hospital with resp treatments and o2 with iv steroids - she was noted to have elevated co2 on abg and bpap was attempted but pt was not cooperative and slowly improved with treatment with stable room air sats- she was heidy by card -History of diabetes 2. Tobacco use 3. Obesity 4. Schizophrenia 5. Hypoventilation disorder secondary to obesity (Pickwickian Syndrome) A. COPD with PRN oxygen use History of present illness: this wf from [facility] with feeling dizzy and sob and felt like she may pass out -she reports having copd and uses o2 at times - pt with no chest pain or syncope -brought in by ambulance from [facility]. States that she went out to get a smoke tonight and suddenly began feeling short of breath, heart felt like it was beating out of her throat, lightheaded. Recent shortness of breath for several weeks, has turned her oxygen up from 2 L to 3 L. Pain in "my lungs in the back" for couple of weeks. Mild cough with white sputum. Denies fever. Low blood pressure and low oxygen saturation of 75% reported by personnel at [facility]. Duoneb given during transport. Seen in this emergency room on 07/14/18 for shortness of air, diagnosed with COPD exacerbation. Treated with Zithromax and prednisone. The above per Dr. Vance Difficult historian. Falls asleep easily. ABG on 2 LPM oxygen this AM shows pH of 7.34, pCO2 of 62.3 and pO2 of 59. Attempt of BiPAP is being started. EKG on 08-05-18 showschycardia, secondary to pulmonary issues. Recommend switching coreg to bisoprolol for better heart rate control with less BP effect. 2. Preliminary echo shows normal LVEF without significant valve disease. 3. Once respiratory status has improved, patient should have a cardiac workup due to her diabetes. Doubt patient would be able to exercise due to obesity or tolerate lexiscan due to severe pulmonary issues. Likely will need to have cardiac cath which can wait since no evidence of ACS at this time. pt had echo sinus tach at 123 bpm with LPFB and PRWP across the precordium. eft atrium is moderately enlarged, left ventricle is normal size, mild concentric left ventricular hypertrophy, visually estimated ejection fraction 55% with no regional wall motion abnormality. 2. The right atrium and right ventricle are moderately enlarged with normal contractility. 3. The aortic valve is minimally thickened and fibrosed. 4. The mitral and tricuspid valve leaflets are minimally thickened 5. The pulmonic valve is poorly present. 6. No significant pericardial effusion noted. DOPPLER INTERROGATION: Doppler interrogation of the aortic, mitral and tricuspid valvular presence of mild mitral and tricuspid regurgitation, calculated right ventricular systolic pressure is 55 mmHg consistent with moderate pulmonary hypertension, diastolic parameters are inconclusive. CONCLUSION: 1. Moderate biatrial enlargement, normal left ventricular size, mild concentric left ventricular hypertrophy, visually estimated ejection fraction 55% with no regional wall motion abnormality, diastolic parameters are inconclusive. 2. Moderately enlarged right ventricle with normal contractility. 3. Mild mitral and tricuspid regurgitation, calculated right ventricular systolic pressure is 55 mmHg consistent with moderate pulmonary hypertension. 4. No significant pericardial e pt will be d/c to f/u with card and will taper steroids and add breo mdi ac status has improved on bisoprolol and improvement of respiratory status (using combo of BiPAP and supplemental oxygen). Encouraged smoking cessation. Continue ASA 81 mg daily lipitor 10 mg daily bisoprolol 5 mg daily Follow up in 2-3 wks OK for discharge from Cardiology standpoint. Objective Vital signs: Temp Pulse Resp BP Pulse Ox 98.0 F 88 18 142/87 H 96 08/07/18 08:00 08/07/18 08:00 08/07/18 08:00 08/07/18 08:00 08/07/18 12:40 no acute distress, obese - *Routine HEENT Exam Head: Present: normocephalic Eye: Present: EOMI, PERRL ENT: Present: mucous membranes dry - *Routine Neck Exam Present: supple. Absent: JVD - *Routine Respiratory Exam Present: decreased breath sounds - *Routine Cardiovascular Exam Present: RRR, murmur - *Routine Abdominal Exam Present: soft - *Routine Extremities Exam Absent: calf tenderness - *Routine Skin Exam Present: intact - *Routine Neurological Exam Present: alert, CN II-XII intact. Absent: motor deficit - Routine Psychiatric Exam Present: normal affect. Absent: good insight Results Labs on day of discharge: Labs from last 24 hours 08/07/18 08/07/18 08/06/18 11:32 06:27 21:33 POC Glucose 234 H 205 H 234 H 08/06/18 16:28 POC Glucose 241 H Preliminary micro results at discharge 08/05/18 04:10 Blood Culture - Preliminary Blood NO GROWTH AFTER 48 HOURS 08/05/18 04:10 Blood Culture - Preliminary Blood NO GROWTH AFTER 48 HOURS DS: Diagnosis - Discharge Diagnosis (1) COPD (chronic obstructive pulmonary disease) Status: Acute (2) Dizziness Status: Acute (3) Obesity Status: Acute (4) Diabetes Status: Acute (5) Schizophrenia Status: Acute (6) Tobacco use Status: Acute (7) Tachycardia Status: Resolved (8) Pulmonary HTN Status: Acute (9) COPD exacerbation Status: Acute Discharge Plan - Patient Discharge Instructions ACTIVITY: Continue current activity DIET: continue same diet Patient Instructions: DI for Tachycardia, DI for Hypotension - Follow up Plan Disposition: Home, Self-[facility] Medications: Home Medications Medication Instructions Recorded Confirmed Type Acetaminophen [Tylenol 325mg 650 mg PO Q4-6H PRN 08/05/18 08/05/18 History Tablet] Albuterol Sulfate [Albuterol 2.5 mg IH DAILY 08/05/18 08/05/18 History 0.083% 2.5mg/3mL neb] Albuterol Sulfate [Proair 90 mcg IH Q4-6H PRN 08/05/18 08/05/18 History Respiclick] Aspirin [Aspir 81] 81 mg PO DAILY 08/05/18 08/05/18 History Atorvastatin Calcium [Atorvastatin 10 mg PO HS 08/05/18 08/05/18 History 10mg Tab] Carvedilol [Carvedilol 3.125mg Tab] 3.125 mg PO BID 08/05/18 08/05/18 History Fluticasone/Salmeterol [Advair 1 inhalation IH BID 08/05/18 08/05/18 History 100/50mcg diskus] Furosemide [Furosemide 40MG tAB] 40 mg PO PM 08/05/18 08/05/18 History Furosemide [Furosemide 80mg Tab] 80 mg PO DAILY 08/05/18 08/05/18 History Gabapentin [Gabapentin 400mg Cap] 800 mg PO TID 08/05/18 08/05/18 History Haloperidol [Haldol 5mg tablet] 5 mg PO BID 08/05/18 08/05/18 History Insulin Aspart [Novolog Flexpen] 15 unit SQ TID 08/05/18 08/05/18 History Insulin Glargine,Hum.rec.anlog 28 unit SQ HS 08/05/18 08/05/18 History [Basaglar Kwikpen U-100] Ipratropium/Albuterol Sulfate 3 ml IH DAILY PRN 08/05/18 08/05/18 History [Iprat-Albut 0.5-3(2.5) mg/3 ml] LORazepam [Lorazepam 0.5mg Tablet] 0.5 mg PO TID 08/05/18 08/05/18 History Lisinopril [Lisinopril 2.5mg Tab] 2.5 mg PO DAILY 08/05/18 08/05/18 History Metformin HCl 1,000 mg PO BID 08/05/18 08/05/18 History Sitagliptin Phosphate [Januvia 100 mg PO DAILY 08/05/18 08/05/18 History 100mg tablet] Topiramate 100 mg PO BID 08/05/18 08/05/18 History buPROPion HCl [Bupropion Xl] 150 mg PO DAILY 08/05/18 08/05/18 History risperiDONE [Risperidone] 8 mg PO HS 08/05/18 08/05/18 History Atorvastatin Calcium [Lipitor 10mg 10 mg PO DAILY #90 tab 08/07/18 Rx Tablet] Bisoprolol Fumarate [Zebeta 5mg 5 mg PO DAILY #90 tab 08/07/18 Rx tablet] Prescriptions/Medication Reconciliation: New Bisoprolol Fumarate [Zebeta 5mg tablet] 5 mg PO DAILY #90 tab Atorvastatin Calcium [Lipitor 10mg Tablet] 10 mg PO DAILY #90 tab Continue Atorvastatin Calcium [Atorvastatin 10mg Tab] 10 mg PO HS Fluticasone/Salmeterol [Advair 100/50mcg diskus] 1 inhalation IH BID Topiramate 100 mg PO BID Metformin HCl 1,000 mg PO BID LORazepam [Lorazepam 0.5mg Tablet] 0.5 mg PO TID Ipratropium/Albuterol Sulfate [Iprat-Albut 0.5-3(2.5) mg/3 ml] 3 ml IH DAILY PRN PRN Reason: Shortness Of Breath Insulin Glargine,Hum.rec.anlog [Basaglar Kwikpen U-100] 28 unit SQ HS Insulin Aspart [Novolog Flexpen] 15 unit SQ TID Aspirin [Aspir 81] 81 mg PO DAILY Albuterol Sulfate [Proair Respiclick] 90 mcg IH Q4-6H PRN PRN Reason: Shortness Of Breath Albuterol Sulfate [Albuterol 0.083% 2.5mg/3mL neb] 2.5 mg IH DAILY Acetaminophen [Tylenol 325mg Tablet] 650 mg PO Q4-6H PRN PRN Reason: As Needed For Fever Or Pain Sitagliptin Phosphate [Januvia 100mg tablet] 100 mg PO DAILY Lisinopril [Lisinopril 2.5mg Tab] 2.5 mg PO DAILY Furosemide [Furosemide 40MG tAB] 40 mg PO PM buPROPion HCl [Bupropion Xl] 150 mg PO DAILY Discontinued Furosemide [Furosemide 80mg Tab] 80 mg PO DAILY Carvedilol [Carvedilol 3.125mg Tab] 3.125 mg PO BID risperiDONE [Risperidone] 8 mg PO HS Haloperidol [Haldol 5mg tablet] 5 mg PO BID Gabapentin [Gabapentin 400mg Cap] 800 mg PO TID
== END 2018-08-07 14:45 | disposition home or self-care (01) | DRG 191 ==
LOC: ICU 03:57 → ER 03:57 → OBSVTOIN 06:30 → ICU 06:34
PROVIDERS: ADMIT Family Medicine; ATTEND Emergency Medicine